=== PATIENT | female | born 2000 | race Caucasian/White ===

== ENCOUNTER 2020-06-09 10:23 | Emergency (ER) | payer MEDICAID, SELFPAY ==
[2020-06-09 10:25] VITALS: BP 136/91; PULSE 93; RESP 17; TEMP 36.8; O2SAT 96; BMI 32.9
--- NOTE | 2020-06-09 10:53 | ED.VISSUMM ---
- ER Visit Summary Date of Service: 06/09/20 Chief Complaint: Vomiting and diarrhea History of Present Illness: The patient is a 19 F presenting with vomiting and diarrhea. Patient had her gallbladder removed 06/04/2020 in [place]. She states she has had trouble with vomiting since the surgery. She was readmitted June 07 and discharged on June 08. She had a CT scan during that admission which was unremarkable. She has had 4 episodes of vomiting today. Denies blood in her emesis. She has had mild diarrhea. She tested negative for Covid yesterday. She denies fever. She complains of epigastric abdominal pain. Records were obtained from [facility], they suspect that her symptoms are not a postoperative complication as she had similar episodes of nausea vomiting in April and suspect the gallbladder was never the cause of her symptoms. Considered alternative etiology of cyclic vomiting syndrome. Patient does smoke marijuana daily. Physical Examination: Vitals are stable. Patient is afebrile. Alert no acute distress. HEENT exam is unremarkable. Neck is supple. Lungs are clear and equal bilaterally. Heart is regular rate and rhythm. Abdomen is soft nontender nondistended. No guarding or rebound. Incision clean dry and intact. Extremities are unremarkable. Skin is warm and dry. Remainder of exam is unremarkable. Emergency Department Course and Treatment: Patient was given IV fluids, Reglan. CBC shows white count 13.9. Chemistries normal except potassium 3.3. Liver lipase are normal. hCG negative. Patient did have episode of vomiting in the ED. She was given Ativan and Pepcid IV. She is resting comfortably and is requesting discharge home. Discussed with her surgeon Dr. Gaitan. She will follow-up in the office. Advised return to ED for worsening complaints. Disposition: Discharge home Impression: Vomiting This note was generated with [employer] dictation software. It may contain incorrect words, spelling, and punctuation that were not noted in review of the chart prior to signing ED Disposition - Plan for ED Patient: Instructions: ED Vomiting and Diarrhea ... Referrals: Bang Boyd MD [Primary Care Provider] -
[2020-06-09] MEDS: 0.9% Normal Saline 1,000 ML 1000 ML IV (11:02)
[2020-06-09] MEDS: Metoclopramide 10 MG/2 ML Vial IV (11:03)
[2020-06-09 11:13] LABS: Mucous, Urine 0 SEEN /hpf (<or=2+)
[2020-06-09 11:18] LABS: Glucose, Dipstick Normal (Normal); Leukocyte Esterase-Dipstick 25 /ul (Negative); Nitrite-Dipstick Negative (Negative); Occult Blood-Urine 250 /ul (Negative); Protein-Dipstick 30 mg/dl (Negative); Specific Gravity, Urine 1.025 (1.002-1.030); Urine Urobilinogen 1 mg/dl (Normal)
[2020-06-09 11:20] LABS: Color, Urine Yellow (Yellow); Urine Bilirubin Dipstick 1 mg/dL (Negative); Urine Clarity Clear (Clear)
[2020-06-09 11:21] LABS: Ketone-Dipstick 150 mg/dl (Negative)
[2020-06-09 11:25] LABS: AST(SGOT) 27 U/L (15-37); Alanine Aminotransfer ALT/SGPT 51 U/L (13-56); Albumin, Serum 4.3 g/dL (3.2-5.0); Alkaline Phosphatase 51 U/L (45-117); Anion Gap 11 (5-15); BUN 9 mg/dL (7-18); Bilirubin, Direct 0.18 mg/dL (0.00-0.30); Calcium,Total 9.5 mg/dL (8.5-10.1); Chloride 100 mmol/L (98-107); Creatinine, Serum 0.75 mg/dL (0.55-1.02); EST Glomerular Filtration Rate 104 mL/min (>60); Est Glom Filt Rate - Afr Amer 126 mL/min (>60); Estimated Creatinine Clearance 98.98 ml/min; Glucose 88 mg/dL (74-106); Lipase 95 U/L (73-393); Potassium 3.3 mmol/L (3.5-5.1); Protein, Total 8.3 g/dL (6.4-8.2); Sodium Level 134 mmol/L (136-145)
[2020-06-09 11:38] LABS: Internal QC Validated? YES +Cl - CLEAR BKGD; Pregnancy, Serum, hCG Quali. NEGATIVE Negative
[2020-06-09 11:44] LABS: Bacteria 1+ /hpf (None Seen); Red Blood Cells-Urine 5-10 SEEN /hpf (0-5); Squamous Epithelial Cells - UA 0-5 SEEN /hpf (5-10); White Blood Cells 0-5 SEEN /hpf (0-5)
[2020-06-09 12:05] LABS: Absolute Lymphocyte Count 1.74 X10^3/uL (0.83-4.51); Absolute Neutrophil Count 11.1 X10^3/uL (2.0-7.7); Basophil# 0.05 X10^3/uL; Basophil% 0.4 % (0-1); Eosinophil# 0.04 X10^3/uL; Eosinophils% 0.3 % (0-5); Hematocrit 40.2 % (37-47); Hemoglobin 13.6 g/dL (12.0-15.0); Lymphocyte # 1.74 X10^3/ul (4.0); Lymphocyte % 12.5 % (19-41); Mean Corp Hgb Conc 33.8 g/dL (32-36); Mean Corpuscular Hgb 27.4 pg (27.0-32.0); Mean Platelet Vol. 9.5 fl (6.2-12.0); Monocyte# 0.92 X10^3/uL; Monocyte% 6.6 % (0-10); NRBC Flagged by Analyzer 0 % (0-5); Neutrophil # 11.13 X10^3/uL (2.7-7.7); Neutrophil % 79.8 % (47-70); Platelet Count 580 K/mm3 (150-450); RBC Distribution Width CV 12.8 % (11.6-14.6); RBC Distribution Width SD 36.9 fl (35.1-43.9); Red Blood Count 4.96 M/mm3 (4.2-5.4); White Blood Count 13.9 K/mm3 (4.4-11.0)
[2020-06-09] MEDS: Famotidine 200 MG/20 ML MDV 20 MG in 0.9% Normal Saline (Pres. free 8 ML 300 MG IV (12:13)
[2020-06-09] MEDS: Ondansetron 4 MG/2 ML Vial IV (12:17)
[2020-06-09] MEDS: LORazepam 2 MG/ML Syringe 0.5 MG IV (12:19)
[2020-06-09 12:21] VITALS: BP 131/100; PULSE 93; RESP 18; O2SAT 97
[2020-06-09 12:22] VITALS: BP 131/100; PULSE 83; RESP 18; TEMP 36.8; O2SAT 97
--- NOTE | 2020-06-09 12:34 | ED.DEP ---
ED Disposition - Plan for ED Patient: Instructions: ED Vomiting and Diarrhea ... Referrals: Bang Boyd MD [Primary Care Provider] -
[2020-06-09 12:55] VITALS: RESP 17
== END 2020-06-09 12:55 | disposition home or self-care (01) ==
LOC: ED 11:24
PROVIDERS: Emergency Provider Emergency Medicine; PCP Family Medicine
DX: R11.10 Vomiting, unspecified (principal); D64.9 Anemia, unspecified; Z90.49 Acquired absence of other specified parts of digestive tract
CPT/HCPCS: 80048; 80076; 81001; 83690; 84703; 85025; 96361; 96374; 96375; 99283; J7030; A4216; J2405; J3490